=== PATIENT | male | born 1945 | race Caucasian/White ===

== ENCOUNTER 2017-08-15 15:34 | Outpatient (CLI) | payer MEDICARE ==
[2017-08-15 17:01] LABS: Hematocrit 48.2 % (42.0-52.0); Mean Platelet Volume 7.5 fL (7.4-10.4); Red Blood Cell (RBC) Count 4.93 mill/uL (4.70-6.10); White Blood Cell (WBC) Count 9.2 thou/uL (4.8-10.8)
[2017-08-15 17:07] LABS: PTT 30.3 SEC (22.9-36.1); Prothrombin Time 13.4 SEC (12.0-14.7)
[2017-08-15 17:22] LABS: Anion Gap 12 mmol/L (10-20); BUN (Urea Nitrogen) 16 mg/dL (8.4-25.7); Calc. Creatinine Clearance 0 mL/min (70-130); Calcium 9.2 mg/dL (7.8-10.44); Carbon Dioxide 23 mmol/L (23-31); Chloride 107 mmol/L (98-107); Estimated GFR-MDRD 50
[2017-08-15 17:39] LABS: EPI Status Message No Message; Hematocrit 48.4 % (42.0-52.0)
== END 2017-08-15 15:35 | disposition home or self-care (01) ==
LOC: LABBT 15:34
PROVIDERS: ATTEND Urology
DX: Z01.812 Encounter for preprocedural laboratory examination (principal); N20.1 Calculus of ureter
CPT/HCPCS: 80048; 85027; 85576; 85610; 85730; 93005; 93010

== ENCOUNTER 2017-08-20 06:16 | Day surgery (SDC) | payer MEDICARE ==
[2017-08-15 16:09] VITALS: BMI 39.7
--- NOTE | 2017-08-20 07:44 | RAD ---
ABDOMEN 1 VIEW: HISTORY: A 71-year-old male for preoperative evaluation. COMPARISON: 10/19/14. FINDINGS: No overt calculus. Lumbar spine spondylosis. No bowel obstruction or other acute process. IMPRESSION: Unremarkable abdomen 1 view. POS: [facility]
[2017-08-20] MEDS ORDERED: cefTRIAXone\\ROCEPHIN 1 GM, Syringe 0.4 ML in Sterile Water 9.6 ML SLOW IVP SCH (08:00)
[2017-08-20] MEDS ORDERED: Iothalamate Meglumine 60% 50 ML VIAL FS ONE (09:29)
[2017-08-20] MEDS ORDERED: Fentanyl 100 MCG/2 ML VIAL ONE (09:31)
--- NOTE | 2017-08-20 12:26 | OP ---
DATE OF PROCEDURE: 08/20/2017 PREOPERATIVE DIAGNOSIS: Right ureteral stone. POSTOPERATIVE DIAGNOSIS: Right ureteral stone. PROCEDURE PERFORMED: Right ESWL, cystoscopy, right stent. SURGEON: Dr. Laci Loco ANESTHETIC: General. ESTIMATED BLOOD LOSS: Not recorded. FINDINGS: There is about a 10 mm stone in the proximal right ureter. DRAINS PLACED: A 4.8 x 26 cm double-J stent. OPERATIVE TECHNIQUE: After obtaining written and verbal consent from the patient after receiving IV antibiotics and documenting normal preoperative blood work, he was taken to the operating suite. He was placed in supine position on the treatment table. PlexiPulses were placed on his lower extremiti es and turned on. We initially tried to treat him from a posterior entry, but because of his size we were unable to, so we treated him anteriorly. The stone was placed in treatment focal point, it was coupled with lithotripter unit. Shockwave therapy was commenced. A total of 3500 shocks at maximum kV level 6 were given. It did appear that the stone had fragmented some with some cracks and changi ng of shape, but did not at all spread out along the ureter. Because of the size of the stone we aubree t ahead and placed him in the dorsal lithotomy position and sterilely prepped and draped for cystosco py. This was done with a 22-Frisian sheath and a 30-degree lens. This was passed under direct vision through the male urethra into the urinary bladder under direct vision with video camera and monitor. The bladder was inspected. No tumor, foreign body, or stone. A guidewire was fed up the right ure ter to the level of stone, it did not easily pass the stone. We fed an open-ended catheter up to thi s point and injected contrast in a retrograde manner filling out some of the ureter proximal to it. We then were able to pass a guidewire up past this and in doing so, the stone looked like it broke in to 4 or 5 pieces that did travel up the ureter. Over this guidewire, we then passed a 4.8 x 26 cm do uble-J stent, pushing up into place with aid of a pusher so its proximal end coiled in the renal pelv is and its distal end coiled in the bladder when the wire was removed. The string was left attached coming out of the urethral meatus. The bladder is emptied, the instruments were removed. He was courtney kened and extubated and taken by stretcher to the recovery room.
[2017-08-20] MEDS ORDERED: Morphine 4 MG/ML VIAL ONE (12:58)
[2017-08-20] MEDS ORDERED: Acetaminophen/Codeine 30-300mg Tablet ONE (13:33)
[2017-08-20] MEDS ORDERED: Propofol 200 MG/20 ML VIAL ONE (16:14)
[2017-08-20] MEDS ORDERED: Metoclopramide HCl 10 MG/2 ML VIAL ONE (16:14)
[2017-08-20] MEDS ORDERED: Dexamethasone 20 MG/5 ML VIAL ONE (16:14)
[2017-08-20] MEDS ORDERED: Lidocaine 1% PF 5 ML VIAL ONE (16:14)
[2017-08-20] MEDS ORDERED: Ondansetron HCl/PF 4 MG/2 ML Vial ONE (16:14)
== END 2017-08-20 14:15 | disposition home or self-care (01) ==
LOC: SDC 06:16
PROVIDERS: ATTEND Urology
PROC: 0TF6XZZ Fragmentation in Right Ureter, External Approach (ICD-10-PCS; principal; 2017-08-20)
PROC: 0T9680Z Drainage of Right Ureter with Drainage Device, Via Natural or Artificial Opening Endoscopic (ICD-10-PCS; 2017-08-20)
DX: N20.1 Calculus of ureter (principal); M10.9 Gout, unspecified; I10 Essential (primary) hypertension; G47.33 Obstructive sleep apnea (adult) (pediatric); Z98.890 Other specified postprocedural states; Z87.442 Personal history of urinary calculi; Z79.899 Other long term (current) drug therapy; Z79.1 Long term (current) use of non-steroidal anti-inflammatories (NSAID); Z79.2 Long term (current) use of antibiotics; Z99.89 Dependence on other enabling machines and devices
CPT/HCPCS: 50590; 52332; 74000; 96374; C1758; A4216; J0131; J0696; J1100; J2001; J2270; J2405; J2704; J2765; J3010; J3370; Q9961

== ENCOUNTER 2017-09-01 06:47 | Day surgery (SDC) | payer MEDICARE ==
[2017-08-29 13:43] VITALS: BMI 38.5
[2017-09-01] MEDS ORDERED: Ondansetron HCl/PF 4 MG/2 ML Vial ONE ×2 (10:21→10:57)
[2017-09-01 10:41] LABS: #Eosinphils 0.1 thou/uL (0.0-0.7); #Lymphocytes 2.8 thou/uL (1.20-3.40); #Monocytes 0.9 thou/uL (0.11-0.59); #Neutrophils 13.6 thou/uL (1.40-6.50); %Basophils 0.2 % (0.0-1.0); %Eosinophils 0.7 % (0.0-10.0); %Neutrophils 78.1 % (42.0-75.0); Hemoglobin 17.9 g/dL (14.0-18.0); Mean Corpuscular HGB CONC 34.4 g/dL (32.0-36.0); Mean Corpuscular Hemoglobin 34.2 pg (27.0-31.0); Mean Corpuscular Volume 99.4 fl (80.0-94.0); Mean Platelet Volume 7.4 fL (7.4-10.4); Platelet Count 252 thou/uL (130-400); RBC Distribution Width 11.5 % (11.5-14.5); Red Blood Cell (RBC) Count 5.23 mill/uL (4.70-6.10); White Blood Cell (WBC) Count 17.4 thou/uL (4.8-10.8)
[2017-09-01] MEDS ORDERED: cefTRIAXone\\ROCEPHIN 2 GM in Sodium Chloride 0.9% 100 ML IVPB SCH (11:15)
[2017-09-01 11:36] LABS: Bilirubin Negative (Negative); Blood, Urine Large (Negative); Clarity CLOUDY (Clear); Glucose, Urine (Dipstick) Negative (Negative); Leukocyte Large (Negative); Nitrite Negative (Negative); Protein, Urine (Dipstick) 30 mg/dL (Neg-Trace); Specific Gravity, Urine 1.017 (1.002-1.036); Urobilinogen 0.2 mg/dL (0.2-1.0)
[2017-09-01 11:40] LABS: Bacteria/HPF 4+ HPF (None Seen); Hyaline Casts/LPF 0-3 HYALINE CAST LPF (0-3 Hyaline); Pathc Cast-AUWi Flag 0.13 (0-2.49); RBC/HPF GREATER THAN 50-TNTC HPF (0-3); Squamous Epithelial None Seen HPF (0-3)
[2017-09-01 11:41] LABS: Yeast-AUWi Flag 55.4 (0-25.0)
[2017-09-01 11:47] LABS: Yeast-All Forms None Seen HPF (None Seen)
--- NOTE | 2017-09-01 13:57 | RAD ---
ABDOMEN 1 VIEW: Date: 09/01/17 HISTORY: Ureteral stent. Preop. COMPARISON: 08/20/17. FINDINGS/IMPRESSION: Visualized bowel gas pattern is nonspecific. Double pigtail stent overlies the course of the right ur eter. Tiny calcific densities project over the inferior pole of the right renal shadow on today's exa m and may represent right renal calculi. There are degenerative changes of the lumbar spine and hips. POS: [facility]
[2017-09-01] MEDS ORDERED: Ondansetron HCl/PF 4 MG/2 ML Vial IVP PRN (14:58)
[2017-09-01] MEDS ORDERED: Benzonatate 100 MG CAP PO PRN (14:58)
[2017-09-01] MEDS ORDERED: HYDROcodone/Acetaminophen 5/325 mg Tablet PO PRN (14:58)
[2017-09-01] MEDS ORDERED: hydrALAZINE 20 MG/ML VIAL SLOW IVP PRN (14:58)
[2017-09-01] MEDS ORDERED: Acetaminophen/Codeine 30-300mg Tablet PO PRN (14:59)
[2017-09-01] MEDS ORDERED: Vancomycin HCl 1 GM in Premix Bag 1 BAG IVPB SCH (15:00)
[2017-09-01] MEDS ORDERED: Calcium Carbonate 500 MG ChewTAB PO PRN (15:02)
[2017-09-01] MEDS ORDERED: Bisacodyl 5 MG TAB PO PRN (15:02)
[2017-09-01] MEDS: Acetaminophen 325 MG TAB PO PRN (15:38)
--- NOTE | 2017-09-01 16:29 | CON ---
DATE OF CONSULTATION: 09/01/2017 REASON FOR ADMISSION: Status post lithotripsy, fever, and chills. REASON FOR CONSULTATION: Medical management. CONSULTING PHYSICIAN: Dr. Loco. BRIEF HOSPITAL COURSE: This is a 71-year-old pleasant gentleman, who had a lithotripsy done 2 weeks back, was followed up by Urology last Friday and found that there was not complete resolution of s ymptoms. He was called in today for outpatient procedure, but because this morning he had an episode of a fever as high as 103 and chills, the patient to have the procedure has been admitted to the [facility] for further evaluation and treatment. The patient has a history of Staph UTIs in the past. He has been covered by vancomycin and ceftriaxone. I have been called in for management of the sepsis and other medical problems. The patient right now denies any shortness of breath. Complains of some suprapubic pain when he moves. Otherwise, has a fever of 102 right now. No chills at the present m oment. No nausea, no vomiting, though he has no appetite. PAST MEDICAL HISTORY: Significant for hypertension; gout; obstructive sleep apnea, which he uses CPA P; and history of multiple kidney stones in the past. PAST SURGICAL HISTORY: Tonsillectomy, bilateral shoulder surgery, multiple lithotripsies in the past , lumbar surgery. ALLERGIES: None. SOCIAL HISTORY: Does not smoke, drink, or do recreational drugs. FAMILY HISTORY: Negative for diabetes and hypertension. MEDICATIONS: Include allopurinol, enalapril, Mobic. For complete list, please see MAR. REVIEW OF SYSTEMS: Significant for fever, chills, suprapubic pain. Otherwise, no headache, no eye p ain, no hearing loss, no latencies, no cough, no chest pain, no diarrhea, no polyuria, no memory or m ood changes, no neck pain. PHYSICAL EXAMINATION: VITAL SIGNS: The patient's blood pressure is 152/76, temperature is 102.9, pulse is 89. Breathing c omfortably on room air. GENERAL: Patient is lying in bed in mild distress, because of post-procedure discomfort. HEENT: Atraumatic, normocephalic. Eyes: Pupils equally round, react to light. Extraocular muscles intact. Mucous membranes moist. NECK: No JVD. CHEST: Breath sounds head. No rales or rhonchi. CARDIAC: S1, S2. No murmurs, rubs, or gallops. ABDOMEN: Soft, obese. Some suprapubic tenderness. EXTREMITIES: No cyanosis, clubbing, or edema. NEUROLOGIC: Alert, awake, oriented. No cranial deficits. No sensorimotor deficits. LABORATORY DATA: EKG: Normal sinus rhythm at 73. WBC count of 17.4, hemoglobin 17.9. Urine wbcs 5 0. KUB shows double pigtail stent in the right ureter. The potassium is 4.4, creatinine 1.4. INR i s 1.0. ASSESSMENT AND PLAN: 1. Sepsis secondary to urinary tract infection, complicated with stone, status post lithotripsy. Th e patient on vancomycin and Rocephin. We will follow cultures and optimize our treatment. 2. Right ureteral stone, status post lithotripsy. Follow Dr. Loco's plan. 3. Hypertension. Do p.r.n. medications for now and continue home medications. 4. Gout. We will continue allopurinol. 5. Obstructive sleep apnea, on CPAP. 6. Obesity with a BMI of 38.5. 7. Sequential compression devices for deep vein thrombosis prophylaxis. Thanks, Dr. Loco, for letting me participate in this patient's care. I will follow with you and liset jones recommendations as the clinical course evolves.
[2017-09-01] MEDS: D5 1/2 NS w/10 mEq KCl 1,000 ML/1,000 ML BAG IV SCH ×2 (17:03→19:34)
[2017-09-01 18:09] LABS: Anion Gap 14 mmol/L (10-20); BUN (Urea Nitrogen) 13 mg/dL (8.4-25.7); Calc. Creatinine Clearance 100 mL/min (70-130); Calcium 9.5 mg/dL (7.8-10.44); Carbon Dioxide 23 mmol/L (23-31); Chloride 101 mmol/L (98-107); Estimated GFR-MDRD 51; Glucose 189 mg/dL (80-115); Potassium 4.3 mmol/L (3.5-5.1); Sodium 134 mmol/L (136-145)
[2017-09-01] MEDS: Docusate 100 MG CAP PO SCH (19:37)
[2017-09-01] MEDS: Acetaminophen/Codeine 30-300mg Tablet PO PRN (19:38)
[2017-09-01] MEDS ORDERED: Ibuprofen 600 MG TAB PO PRN (22:05)
[2017-09-01] MEDS: Vancomycin HCl 1.5 GM in Sodium Chloride 0.9% 250 ML 300 ML IVPB SCH (22:45)
[2017-09-02] MEDS ORDERED: Vancomycin HCl 1 GM in Premix Bag 1 BAG IVPB SCH (01:00)
[2017-09-02 05:27] LABS: #Lymphocytes 2.4 thou/uL (1.20-3.40); #Monocytes 1.1 thou/uL (0.11-0.59); #Neutrophils 10.7 thou/uL (1.40-6.50); %Basophils 0.3 % (0.0-1.0); %Eosinophils 0.3 % (0.0-10.0); %Monocytes 7.5 % (0.0-10.0); Hemoglobin 15.7 g/dL (14.0-18.0); Mean Corpuscular HGB CONC 33.6 g/dL (32.0-36.0); Mean Corpuscular Hemoglobin 33.6 pg (27.0-31.0); Mean Corpuscular Volume 99.8 fl (80.0-94.0); Mean Platelet Volume 7.4 fL (7.4-10.4); Platelet Count 165 thou/uL (130-400); RBC Distribution Width 11.5 % (11.5-14.5); Red Blood Cell (RBC) Count 4.69 mill/uL (4.70-6.10); White Blood Cell (WBC) Count 14.3 thou/uL (4.8-10.8)
[2017-09-02 05:36] LABS: ALT (SGPT) 31 U/L (8-55); AST (SGOT) 21 U/L (5-34); Albumin 3.6 g/dL (3.4-4.8); Alkaline Phosphatase 56 U/L (40-150); Anion Gap 12 mmol/L (10-20); BUN (Urea Nitrogen) 16 mg/dL (8.4-25.7); Calc. Creatinine Clearance 107 mL/min (70-130); Calcium 8.7 mg/dL (7.8-10.44); Carbon Dioxide 22 mmol/L (23-31); Chloride 103 mmol/L (98-107); Estimated GFR-MDRD 55; Globulin 2.5 g/dL (2.4-3.5); Glucose 177 mg/dL (80-115); Potassium 4.1 mmol/L (3.5-5.1); Protein, Total 6.1 g/dL (5.8-8.1); Sodium 133 mmol/L (136-145)
--- NOTE | 2017-09-02 07:24 | RAD ---
1 VIEW CHEST: Date: 09/01/17 HISTORY: Fever. COMPARISON: 10/20/14. FINDINGS: Portable upright chest radiograph demonstrates a normal cardiac silhouette. Pulmonary vessels and hil um are normal. Costophrenic angles are clear. No consolidation or mass. No pneumothorax or osseous ab normality. Previous right rotator cuff repair is noted. IMPRESSION: No acute cardiopulmonary process. POS: [facility]
[2017-09-02] MEDS: Docusate 100 MG CAP PO SCH ×2 (08:17→21:18)
[2017-09-02] MEDS: Allopurinol 100 MG TAB PO SCH (08:17)
[2017-09-02] MEDS: D5 1/2 NS w/10 mEq KCl 1,000 ML/1,000 ML BAG IV SCH ×3 (08:28→21:22)
[2017-09-02] MEDS: Vancomycin HCl 1.5 GM in Sodium Chloride 0.9% 250 ML 300 ML IVPB SCH (11:25)
[2017-09-02] MEDS: Acetaminophen 325 MG TAB PO PRN (11:25)
[2017-09-02] MEDS: cefTRIAXone\\ROCEPHIN 1 GM, Syringe 0.4 ML in Sterile Water 9.6 ML SLOW IVP SCH (12:28)
--- NOTE | 2017-09-02 15:51 | PDOC.PN ---
- Subjective Encounter Start Date: 09/02/17 Encounter Start Time: 15:50 Patient seen and examined. No new complaints. No overnight events - Objective MAR Reviewed: Yes Vital Signs & Weight: Vital Signs (12 hours) Temp Pulse Resp BP BP Pulse Ox 09/02/17 11:24 97.6 F 70 16 106/63 95 09/02/17 08:17 98.6 F 70 16 09/02/17 08:16 142/78 H 09/02/17 07:28 98.6 F 70 16 142/78 H 95 09/02/17 05:42 98.3 F 09/02/17 04:00 98.1 F 60 20 132/82 95 Weight Weight 308 lb I&O: 09/01/17 09/02/17 09/03/17 06:59 06:59 06:59 Intake Total 1489 Output Total 1100 Balance 389 Result Diagrams: 09/02/17 05:05 09/02/17 05:05 Phys Exam - Physical Examination Constitutional: NAD HEENT: PERRLA Neck: no JVD Respiratory: no wheezing Cardiovascular: no significant murmur Gastrointestinal: soft supra pubic tenderness Musculoskeletal: no edema Neurological: normal sensation, moves all 4 limbs Psychiatric: A&O x 3 Dx/Plan (1) UTI (urinary tract infection) Status: Acute (2) Sepsis Code(s): A41.9 - SEPSIS, UNSPECIFIED ORGANISM Status: Acute (3) Ureteral stone Code(s): N20.1 - CALCULUS OF URETER Status: Acute (4) SHELLY (obstructive sleep apnea) Code(s): G47.33 - OBSTRUCTIVE SLEEP APNEA (ADULT) (PEDIATRIC) Status: Acute (5) Obesity (BMI 30-39.9) Code(s): E66.9 - OBESITY, UNSPECIFIED Status: Acute (6) HTN (hypertension) Code(s): I10 - ESSENTIAL (PRIMARY) HYPERTENSION Status: Acute - Plan * f/u urine cul * cont current abx
[2017-09-02 17:32] LABS: Anion Gap 11 mmol/L (10-20); BUN (Urea Nitrogen) 15 mg/dL (8.4-25.7); Calc. Creatinine Clearance 116 mL/min (70-130); Carbon Dioxide 27 mmol/L (23-31); Chloride 100 mmol/L (98-107); Estimated GFR-MDRD 61; Glucose 161 mg/dL (80-115); Potassium 3.8 mmol/L (3.5-5.1); Sodium 134 mmol/L (136-145)
[2017-09-02] MEDS: Acetaminophen/Codeine 30-300mg Tablet PO PRN (21:18)
[2017-09-03 05:19] LABS: #Basophils 0.1 thou/uL (0.0-0.2); #Eosinphils 0.2 thou/uL (0.0-0.7); #Lymphocytes 3.2 thou/uL (1.20-3.40); #Monocytes 1.1 thou/uL (0.11-0.59); #Neutrophils 9.5 thou/uL (1.40-6.50); %Basophils 0.4 % (0.0-1.0); %Eosinophils 1.2 % (0.0-10.0); %Lymphocytes 22.8 % (21.0-51.0); %Monocytes 7.6 % (0.0-10.0); Hemoglobin 14.5 g/dL (14.0-18.0); Mean Corpuscular HGB CONC 33.3 g/dL (32.0-36.0); Mean Corpuscular Hemoglobin 33.4 pg (27.0-31.0); Mean Platelet Volume 7.7 fL (7.4-10.4); Platelet Count 190 thou/uL (130-400); RBC Distribution Width 11.4 % (11.5-14.5); Red Blood Cell (RBC) Count 4.32 mill/uL (4.70-6.10)
[2017-09-03] MEDS: D5 1/2 NS w/10 mEq KCl 1,000 ML/1,000 ML BAG IV SCH ×3 (05:29→20:55)
[2017-09-03] MEDS: Allopurinol 100 MG TAB PO SCH (08:57)
[2017-09-03] MEDS: Docusate 100 MG CAP PO SCH ×2 (08:58→20:52)
[2017-09-03] MEDS: cefTRIAXone\\ROCEPHIN 1 GM, Syringe 0.4 ML in Sterile Water 9.6 ML SLOW IVP SCH (12:49)
--- NOTE | 2017-09-03 14:50 | PDOC.PN ---
- Subjective Encounter Start Date: 09/03/17 Encounter Start Time: 14:49 Patient seen and examined. No new complaints. No overnight events - Objective MAR Reviewed: Yes Vital Signs & Weight: Vital Signs (12 hours) Temp Pulse Resp BP BP Pulse Ox 09/03/17 11:40 98.1 F 59 L 16 119/74 96 09/03/17 08:58 135/74 09/03/17 08:41 98.6 F 63 16 09/03/17 07:36 98.6 F 63 14 135/74 94 L 09/03/17 04:00 99 F 67 18 127/83 97 Weight Weight 308 lb I&O: 09/02/17 09/03/17 09/04/17 06:59 06:59 06:59 Intake Total 1489 4500 Output Total 1100 1875 Balance 389 2625 Result Diagrams: 09/03/17 04:16 09/02/17 16:53 Phys Exam - Physical Examination Constitutional: NAD HEENT: PERRLA Neck: no JVD Respiratory: no wheezing Cardiovascular: no significant murmur Gastrointestinal: non-tender Musculoskeletal: pulses present Neurological: moves all 4 limbs Psychiatric: A&O x 3 Dx/Plan (1) UTI (urinary tract infection) Status: Acute (2) Sepsis Code(s): A41.9 - SEPSIS, UNSPECIFIED ORGANISM Status: Acute (3) Ureteral stone Code(s): N20.1 - CALCULUS OF URETER Status: Acute (4) SHELLY (obstructive sleep apnea) Code(s): G47.33 - OBSTRUCTIVE SLEEP APNEA (ADULT) (PEDIATRIC) Status: Acute (5) Obesity (BMI 30-39.9) Code(s): E66.9 - OBESITY, UNSPECIFIED Status: Acute (6) HTN (hypertension) Code(s): I10 - ESSENTIAL (PRIMARY) HYPERTENSION Status: Acute - Plan * cont current care * f/u urology plan
[2017-09-03] MEDS ORDERED: cefTRIAXone\\ROCEPHIN 1 GM, Syringe 0.4 ML in Sterile Water 9.6 ML SLOW IVP SCH (15:00)
[2017-09-03] MEDS: Sulfameth/Trimethoprim DS 800-160mg TAB PO SCH (20:53)
[2017-09-04 05:35] LABS: #Eosinphils 0.2 thou/uL (0.0-0.7); #Lymphocytes 2.4 thou/uL (1.20-3.40); #Monocytes 0.7 thou/uL (0.11-0.59); #Neutrophils 5.8 thou/uL (1.40-6.50); %Basophils 0.1 % (0.0-1.0); %Eosinophils 1.7 % (0.0-10.0); %Monocytes 8.1 % (0.0-10.0); %Neutrophils 64.1 % (42.0-75.0); Hemoglobin 14.4 g/dL (14.0-18.0); Mean Corpuscular HGB CONC 34.5 g/dL (32.0-36.0); Mean Corpuscular Hemoglobin 34.1 pg (27.0-31.0); Mean Corpuscular Volume 98.9 fl (80.0-94.0); Platelet Count 197 thou/uL (130-400); RBC Distribution Width 11.4 % (11.5-14.5); Red Blood Cell (RBC) Count 4.22 mill/uL (4.70-6.10); White Blood Cell (WBC) Count 9.1 thou/uL (4.8-10.8)
[2017-09-04] MEDS: D5 1/2 NS w/10 mEq KCl 1,000 ML/1,000 ML BAG IV SCH ×2 (07:30→10:17)
[2017-09-04] MEDS: Allopurinol 100 MG TAB PO SCH (10:16)
[2017-09-04] MEDS: Sulfameth/Trimethoprim DS 800-160mg TAB PO SCH (10:16)
[2017-09-04] MEDS: Docusate 100 MG CAP PO SCH (10:16)
--- NOTE | 2017-09-04 11:15 | PDOC.PN ---
- Subjective Encounter Start Date: 09/04/17 Encounter Start Time: 11:14 Patient seen and examined. No new complaints. No overnight events - Objective MAR Reviewed: Yes Vital Signs & Weight: Vital Signs (12 hours) Temp Pulse Resp BP BP Pulse Ox 09/04/17 10:17 135/74 09/04/17 08:05 98.2 F 63 12 147/82 H 95 09/04/17 04:59 99.1 F 66 18 124/76 95 09/04/17 00:30 99.3 F 67 20 131/82 95 Weight Weight 308 lb I&O: 09/03/17 09/04/17 09/05/17 06:59 06:59 06:59 Intake Total 4500 4735 Output Total 1875 2825 Balance 2625 1910 Result Diagrams: 09/04/17 04:49 09/02/17 16:53 Phys Exam - Physical Examination Constitutional: NAD HEENT: PERRLA Neck: no JVD Respiratory: no wheezing Cardiovascular: no significant murmur Gastrointestinal: soft Musculoskeletal: pulses present Neurological: moves all 4 limbs Psychiatric: A&O x 3 Dx/Plan (1) UTI (urinary tract infection) Status: Acute (2) Sepsis Code(s): A41.9 - SEPSIS, UNSPECIFIED ORGANISM Status: Acute (3) Ureteral stone Code(s): N20.1 - CALCULUS OF URETER Status: Acute (4) SHELLY (obstructive sleep apnea) Code(s): G47.33 - OBSTRUCTIVE SLEEP APNEA (ADULT) (PEDIATRIC) Status: Acute (5) Obesity (BMI 30-39.9) Code(s): E66.9 - OBESITY, UNSPECIFIED Status: Acute (6) HTN (hypertension) Code(s): I10 - ESSENTIAL (PRIMARY) HYPERTENSION Status: Acute - Plan * continue current mx * f/u urology plan
[2017-09-04 11:53] VITALS: BP 143/63; TEMP 98
== END 2017-09-04 13:55 | disposition home or self-care (01) ==
LOC: SDC 06:47 → SJJU 12:53 → SDC 09-04 13:55
PROVIDERS: ATTEND Urology
DX: N20.1 Calculus of ureter (principal); Z53.8 Procedure and treatment not carried out for other reasons; I10 Essential (primary) hypertension; M19.90 Unspecified osteoarthritis, unspecified site; M10.9 Gout, unspecified; G47.33 Obstructive sleep apnea (adult) (pediatric); E66.9 Obesity, unspecified; Z68.38 Body mass index [BMI] 38.0-38.9, adult; Z79.899 Other long term (current) drug therapy; Z98.890 Other specified postprocedural states; Z99.89 Dependence on other enabling machines and devices
CPT/HCPCS: 71010; 74000; 80048 ×2; 80053; 81001; 85025; 87040; 87077; 87086; 87186; 97139; G8978; G8979; G8980; 36415; A4216; J0696; J2405; J3370; J7050

== ENCOUNTER 2017-09-17 06:20 | Day surgery (SDC) | payer MEDICARE ==
[2017-09-16 13:34] VITALS: BMI 38.7
--- NOTE | 2017-09-17 08:22 | RAD ---
ABDOMEN ONE VIEW: History: Pre op. Comparison: 09-01-17 FINDINGS: The right ureteral stent is similar. There is a calcification projecting over the inferior right melisa l collecting system, similar. No other calculus is seen along the expected location of the ureters. There appears to be a calculus in the right proximal ureter. IMPRESSION: Calculus projecting over the expected location left proximal ureter at the level of the L2 transverse process. POS: [facility]
[2017-09-17] MEDS ORDERED: Levofloxacin 500 mg/D5W 100 ml Premix Bag ONE (09:38)
[2017-09-17] MEDS ORDERED: Fentanyl 100 MCG/2 ML VIAL ONE (09:43)
[2017-09-17] MEDS ORDERED: Iothalamate Meglumine 60% 50 ML VIAL FS ONE (09:48)
--- NOTE | 2017-09-17 12:09 | OP ---
DATE OF SURGERY: 09/17/2017 PREOPERATIVE DIAGNOSES: Right ureteral stone and right renal stone. POSTOPERATIVE DIAGNOSES: Right ureteral stone and right renal stone. PROCEDURES PERFORMED: Right flexible ureteroscopy, laser lithotripsy, stone retrieval with both the large ureteral stone and small renal stone. OPERATIVE TECHNIQUE: After obtaining verbal consent from the patient, he was taken to the operating suite. He was placed in the supine position on the treatment table. PlexiPulses were placed on his lower extremities and turned on. He had already received Levaquin IV piggyback. He was given a gene ral anesthetic, oral intubation, placed in the dorsal lithotomy position and sterilely prepped and dr addison. A smog technician KUB was taken with the fluoroscopy unit. The large proximal stone had not moved. He underwent cystoscopy with a 22-Malian sheath. This was well lubricated and passed under direct visio n through the male urethra and into the urinary bladder with the aid of a video camera and 30-degree lens. The bladder was filled and emptied a number of times and the distal end of the string attached double-J stent was brought out through the urethral meatus and a guidewire was then fed through the stent. The stent was removed and discarded. We fed a second guidewire up with the use of a dual lum en ureteral catheter. We then brought in a medium length ureteral sheath with obturator placed this over one of our guidewires and up to the region a few centimeters distal to the stone. We went over one of the guidewires through the sheath with the flexible ureteroscope and then removed the guidewir e when we got to the area of the stone and brought in a Holmium laser fiber and used it to break up t he stone into smaller and smaller pieces. We basketed a number of these out and rest were felt small enough to easily pass. This went very well. We went ahead and went up into the kidney and removed three renal stones and left few fragments there. We did not use the laser on the stone, so just we w ere able to remove them intact. Some of the small stone fragments were washed up there from treating the proximal ureteral stone. At this point, we reinspected all of the entire caliceal system, renal pelvis and the entire ureter. There were no other stones seen. Through a remaining guidewire, we p laced a 5-Malian [place] catheter, injected contrast. There was some mild hydro, no filling defect, no extravasation noted. The guidewire was replaced through this and we then passed the stent over th e guidewire, pushing up into place with aid of a pusher, so its proximal end curled in the renal pelv is and its distal end coiled in the bladder when the wire was removed. A string was left coming out a few centimeters and cut. The patient at that point was awakened and extubated and taken by stretch er to the recovery room.
--- NOTE | 2017-09-17 12:40 | RAD ---
RIGHT-SIDED RETROGRADE PYELOGRAM: HISTORY: Ureteroscopy. FINDINGS: A single spot fluoroscopic image of the right retrograde pyelogram demonstrates contrast in the pelvi calyceal systems and placement of a right ureteral stent. POS: [facility]
[2017-09-17] MEDS ORDERED: HYDROcodone/Acetaminophen 5/325 mg Tablet ONE (13:02)
[2017-09-17] MEDS ORDERED: Succinylcholine Chloride 20 MG/ML 10 ml SYRINGE FS ONE (13:07)
[2017-09-17] MEDS ORDERED: Ondansetron HCl/PF 4 MG/2 ML Vial ONE (13:07)
[2017-09-17] MEDS ORDERED: Glycopyrrolate 0.2 MG/ML 5 ML SYRINGE ONE (13:07)
[2017-09-17] MEDS ORDERED: Lidocaine 1% PF 5 ML VIAL ONE (13:07)
[2017-09-17] MEDS ORDERED: PROPOFOL 200 MG/20 ML VIAL ONE (13:07)
== END 2017-09-17 13:38 | disposition home or self-care (01) ==
LOC: SDC 06:20
PROVIDERS: ATTEND Urology
PROC: 0TF38ZZ Fragmentation in Right Kidney Pelvis, Via Natural or Artificial Opening Endoscopic (ICD-10-PCS; principal; 2017-09-17)
PROC: 0T768DZ Dilation of Right Ureter with Intraluminal Device, Via Natural or Artificial Opening Endoscopic (ICD-10-PCS; 2017-09-17)
DX: N20.2 Calculus of kidney with calculus of ureter (principal); Z98.890 Other specified postprocedural states
CPT/HCPCS: 52356; 74018; 74420; C1758; J1956; J2001; J2405; J2704; J3010; Q9961

== ENCOUNTER 2017-09-24 12:03 | Emergency (ER) | payer MEDICARE ==
[2017-09-24 12:36] LABS: Bilirubin Negative (Negative); Clarity Clear (Clear); Glucose, Urine (Dipstick) Negative (Negative); Specific Gravity, Urine 1.015 (1.005-1.030); Urobilinogen 0.2 mg/dL (0.2-1.0)
[2017-09-24 12:37] LABS: Leukocyte Unable to Interpret (Negative); Nitrite Unable to Interpret (Negative)
[2017-09-24 12:38] LABS: Blood, Urine Unable to Interpret (Negative)
[2017-09-24 12:40] LABS: Protein, Urine (Dipstick) Negative (Neg-Trace)
[2017-09-24 12:42] LABS: Bacteria/HPF None Seen HPF (None Seen); Squamous Epithelial None Seen HPF (0-3); Yeast-All Forms 1+ HPF (None Seen)
[2017-09-24 13:06] LABS: #Basophils 0.1 thou/uL (0.0-0.2); #Eosinphils 0.1 thou/uL (0.0-0.7); #Lymphocytes 2.7 thou/uL (1.20-3.40); #Monocytes 1.1 thou/uL (0.11-0.59); %Basophils 1.4 % (0.0-1.0); %Lymphocytes 26.7 % (21.0-51.0); %Monocytes 11.1 % (0.0-10.0); %Neutrophils 59.8 % (42.0-75.0); Hemoglobin 16.1 g/dL (14.0-18.0); Mean Corpuscular HGB CONC 34.1 g/dL (32.0-36.0); Mean Corpuscular Hemoglobin 32.1 pg (27.0-31.0); Mean Corpuscular Volume 94.1 fl (80.0-94.0); Mean Platelet Volume 7.1 fL (7.4-10.4); Platelet Count 203 thou/uL (130-400); RBC Distribution Width 10.7 % (11.5-14.5); White Blood Cell (WBC) Count 10.1 thou/uL (4.8-10.8)
[2017-09-24 13:16] LABS: ALT (SGPT) 35 U/L (8-55); AST (SGOT) 28 U/L (5-34); Albumin 4.1 g/dL (3.4-4.8); Alkaline Phosphatase 63 U/L (40-150); Anion Gap 13 mmol/L (10-20); BUN (Urea Nitrogen) 15 mg/dL (8.4-25.7); Bilirubin, Total 0.8 mg/dL (0.2-1.2); CK (CPK) 119 U/L (30-200); Calc. Creatinine Clearance 0 mL/min (70-130); Calcium 9.5 mg/dL (7.8-10.44); Carbon Dioxide 27 mmol/L (23-31); Chloride 102 mmol/L (98-107); Estimated GFR-MDRD 46; Globulin 2.6 g/dL (2.4-3.5); Glucose 133 mg/dL (80-115); Protein, Total 6.7 g/dL (5.8-8.1); Sodium 137 mmol/L (136-145)
== END 2017-09-24 14:00 | disposition home or self-care (01) ==
LOC: SCSER 12:03
DX: N20.0 Calculus of kidney (principal); I10 Essential (primary) hypertension
CPT/HCPCS: 36415; 80053; 81003; 81015; 82550; 83605; 85025; 87086; 99284